=== PATIENT | female | born 1985 | race Caucasian/White ===

== ENCOUNTER → 2016-06-14 | Outpatient (CLI) | payer BC ==
[~2016-06-14] MED LIST: ANAPROX DS550 MG PO; AUGMENTIN 875875 MG PO; Augmentin Xr 101 TER PO; BACTRIM DS 8001 TA1 PO; BIRTH CONTROL1 EAC1 PO; CELEXA20 MG PO; CYMBALTA30 MG PO; DIFLUCAN150 MG PO; HYDROCODONE BIT1 T11 PO; INVANZ1 GM IV; MOBIC15 MG PO; MOBIC7.5 MG PO; MOTRIN600 MG PO; MOTRIN800 MG PO; NAPROSYN500 MG PO; NORCO 325 MG-101 TAB PO; PERCOCET 325 MG1 TA5 PO; PERCOCET 325 MG1 TA6 PO; PRENATAL1 TA7 PO; PRENTAL 1 PLUS1 TAB PO; ULTRAM50 MG PO; Wellbutrin Sr100 MG PO; ZITHROMAX Z PA250 MG PO; ZOFRAN ODT4 MG SL; Zofran4 MG PO
[2016-06-14 17:43] LABS: BASO % 0.5 % (0.0-1.0); EOS # 0.2 10*3/uL (0.0-0.4); EOS % 1.9 % (1.0-4.0); HEMATOCRIT 38.3 % (37.0-47.0); HEMOGLOBIN 12.4 g/dl (12.0-16.0); LYMPH % 48.5 % (27.0-41.0); MEAN CELL VOLUME 86.1 fl (81.0-99.0); MEAN CORPUSCULAR HGB 27.9 pg (27.0-31.0); MEAN CORPUSCULAR HGB CONC 32.4 g/dl (33.0-37.0); MEAN PLATELET VOLUME 11.2 fl (9.6-12.3); MONO # 0.4 10*3/uL (0.1-1.0); NEUT # 3.6 10*3/uL (2.3-7.9); NEUT % 43.6 % (47.0-73.0); PLATELET COUNT AUTOMATED 264 10*3/uL (130-400); RED BLOOD COUNT 4.45 10*6/uL (4.10-5.10); RED CELL DISTRI WIDTH 13.7 % (0-14.5); WHITE BLOOD COUNT 8.3 10*3/uL (4.8-10.8)
[2016-06-14 18:14] LABS: ALBUMIN 3.7 gm/dl (3.1-4.5); ALKALINE PHOSPHATASE 55 U/L (45-117); BILIRUBIN, TOTAL 0.2 mg/dl (0.2-1.0); BUN 8 mg/dl (7-24); C-REACTIVE PROTEIN 1.21 MG/DL (0-0.3); CARBON DIOXIDE 27 mmol/L (21-32); CHLORIDE 107 mmol/L (98-107); EST GLOM FILT AFRICAN AMERICAN > 60 ml/min; GLUCOSE 104 mg/dL (65-99); POTASSIUM 3.8 mmol/L (3.5-5.1); SGOT/AST 11 IU/L (3-35); SGPT/ALT 22 U/L (12-78); SODIUM 142 mmol/L (136-145); TOTAL PROTEIN 7.3 gm/dL (6.4-8.2)
[2016-06-15 22:05] LABS: COMPLEMENT C4 001834 26 mg/dL (14-44)
== END | disposition home or self-care (01) ==
LOC: LAB 17:10
PROVIDERS: Internal Medicine Rheumatology
DX: M32.19 Other organ or system involvement in systemic lupus erythematosus (principal); M06.4 Inflammatory polyarthropathy; Z79.899 Other long term (current) drug therapy

== ENCOUNTER → 2016-08-12 | Outpatient (CLI) | payer BC ==
[2016-08-12 12:42] LABS: BILIRUBIN NEGATIVE (NEGATIVE); BLOOD 2+ (NEGATIVE); CLARITY CLEAR (CLEAR); COLOR YELLOW (YELLOW); GLUCOSE NEGATIVE (NEGATIVE); KETONE NEGATIVE (NEGATIVE); LEUKO ESTERASE NEGATIVE (NEGATIVE); NITRITE NEGATIVE (NEGATIVE); PROTEIN NEGATIVE (NEGATIVE); SPECIFIC GRAVITY <= 1.005 (1.005-1.030); UROBILINOGEN 0.2 E.U./dl (0.2-1.0)
[2016-08-12 12:43] LABS: BASO # 0.1 10*3/uL (0.0-0.1); BASO % 0.5 % (0.0-1.0); EOS # 0.1 10*3/uL (0.0-0.4); EOS % 0.8 % (1.0-4.0); HEMATOCRIT 39.7 % (37.0-47.0); HEMOGLOBIN 12.9 g/dl (12.0-16.0); LYMPH % 30.4 % (27.0-41.0); MEAN CELL VOLUME 86.3 fl (81.0-99.0); MEAN CORPUSCULAR HGB CONC 32.5 g/dl (33.0-37.0); MONO # 0.6 10*3/uL (0.1-1.0); MONO % 6.5 % (3.0-9.0); NEUT % 61.4 % (47.0-73.0); PLATELET COUNT AUTOMATED 202 10*3/uL (130-400); RED CELL DISTRI WIDTH 14.6 % (0-14.5); WHITE BLOOD COUNT 9.7 10*3/uL (4.8-10.8)
[2016-08-12 12:49] LABS: RBC 0-2 rbc/hpf (0-2)
[2016-08-12 13:11] LABS: ALBUMIN 3.9 gm/dl (3.1-4.5); ALKALINE PHOSPHATASE 65 U/L (45-117); BILIRUBIN, TOTAL 0.4 mg/dl (0.2-1.0); BUN 11 mg/dl (7-24); C-REACTIVE PROTEIN 2.68 MG/DL (0-0.3); CARBON DIOXIDE 29 mmol/L (21-32); CHLORIDE 105 mmol/L (98-107); EST GLOM FILT AFRICAN AMERICAN > 60 ml/min; GLUCOSE 98 mg/dL (65-99); POTASSIUM 4.1 mmol/L (3.5-5.1); SGOT/AST 12 IU/L (3-35); SGPT/ALT 14 U/L (12-78); SODIUM 140 mmol/L (136-145); TOTAL PROTEIN 7.4 gm/dL (6.4-8.2)
== END | disposition home or self-care (01) ==
LOC: LAB 11:52
PROVIDERS: Internal Medicine Hematology & Oncology
DX: D68.62 Lupus anticoagulant syndrome (principal); M32.19 Other organ or system involvement in systemic lupus erythematosus

== ENCOUNTER 2016-10-18 17:24 | Emergency (ER) | payer BC ==
[~2016-10-18] VITALS: Ht 160 cm; Wt 59.0 kg
== END 2016-10-18 22:09 | disposition home or self-care (01) ==
LOC: ED 17:24
DX: R51 Headache (principal); R11.0 Nausea; Z88.1 Allergy status to other antibiotic agents; Z88.8 Allergy status to other drugs, medicaments and biological substances

== ENCOUNTER → 2017-01-25 | Outpatient (CLI) | payer BC ==
[2017-01-25 13:51] LABS: BASO % 0.3 % (0.0-1.0); EOS % 0.3 % (1.0-4.0); HEMATOCRIT 39.2 % (37.0-47.0); LYMPH # 4.2 10*3/uL (1.3-4.4); LYMPH % 33.9 % (27.0-41.0); MEAN CELL VOLUME 87.1 fl (81.0-99.0); MEAN CORPUSCULAR HGB 28.9 pg (27.0-31.0); MEAN CORPUSCULAR HGB CONC 33.2 g/dl (33.0-37.0); MEAN PLATELET VOLUME 11.3 fl (9.6-12.3); MONO # 0.6 10*3/uL (0.1-1.0); MONO % 4.5 % (3.0-9.0); NEUT # 7.4 10*3/uL (2.3-7.9); NEUT % 60.3 % (47.0-73.0); PLATELET COUNT AUTOMATED 253 10*3/uL (130-400); RED CELL DISTRI WIDTH 14.2 % (0-14.5); WHITE BLOOD COUNT 12.2 10*3/uL (4.8-10.8)
[2017-01-25 14:05] LABS: BILIRUBIN NEGATIVE (NEGATIVE); BLOOD NEGATIVE (NEGATIVE); CLARITY CLEAR (CLEAR); COLOR YELLOW (YELLOW); GLUCOSE NEGATIVE (NEGATIVE); KETONE NEGATIVE (NEGATIVE); LEUKO ESTERASE NEGATIVE (NEGATIVE); NITRITE NEGATIVE (NEGATIVE); PH 5.5 (5.0-9.0); SPECIFIC GRAVITY >= 1.030 (1.005-1.030); UROBILINOGEN 0.2 E.U./dl (0.2-1.0)
[2017-01-25 14:07] LABS: BACTERIA TRACE; RBC 0-2 rbc/hpf (0-2); WBC 0-2 wbc/hpf (0-5)
[2017-01-25 14:19] LABS: ALBUMIN 3.9 gm/dl (3.1-4.5); ALKALINE PHOSPHATASE 69 U/L (45-117); BUN 14 mg/dl (7-24); CHLORIDE 105 mmol/L (98-107); CREATININE 0.95 mg/dL (0.55-1.02); POTASSIUM 3.3 mmol/L (3.5-5.1); SGOT/AST 11 IU/L (3-35); SGPT/ALT 22 U/L (12-78); SODIUM 139 mmol/L (136-145); TOTAL PROTEIN 7.7 gm/dL (6.4-8.2)
[2017-01-26 08:16] LABS: COMPLEMENT C4 001834 33 mg/dL (14-44)
[2017-01-26 14:11] LABS: ANTI-DSDNA ANTIBODIES 096339 7 IU/mL (0-9)
== END | disposition home or self-care (01) ==
LOC: LAB 13:18
PROVIDERS: Internal Medicine Rheumatology
DX: M32.19 Other organ or system involvement in systemic lupus erythematosus (principal); Z79.899 Other long term (current) drug therapy

== ENCOUNTER → 2017-03-17 | Outpatient (CLI) | payer BC | END | disposition home or self-care (01) | LOC: US 10:40 | DX: N18.1 Chronic kidney disease, stage 1 (principal); R80.9 Proteinuria, unspecified; M32.9 Systemic lupus erythematosus, unspecified; G43.809 Other migraine, not intractable, without status migrainosus ==

== ENCOUNTER → 2017-04-03 | Outpatient (CLI) | payer BC ==
[2017-04-03 09:59] LABS: BASO # 0.1 10*3/uL (0.0-0.1); BASO % 0.5 % (0.0-1.0); EOS % 0.4 % (1.0-4.0); HEMATOCRIT 37.5 % (37.0-47.0); HEMOGLOBIN 12.7 g/dl (12.0-16.0); LYMPH # 3.7 10*3/uL (1.3-4.4); LYMPH % 33.6 % (27.0-41.0); MEAN CELL VOLUME 87.2 fl (81.0-99.0); MEAN CORPUSCULAR HGB 29.5 pg (27.0-31.0); MEAN CORPUSCULAR HGB CONC 33.9 g/dl (33.0-37.0); MEAN PLATELET VOLUME 11.8 fl (9.6-12.3); MONO # 0.6 10*3/uL (0.1-1.0); MONO % 5.2 % (3.0-9.0); NEUT # 6.6 10*3/uL (2.3-7.9); NEUT % 59.8 % (47.0-73.0); PLATELET COUNT AUTOMATED 216 10*3/uL (130-400); RED CELL DISTRI WIDTH 13.6 % (0-14.5); WHITE BLOOD COUNT 10.9 10*3/uL (4.8-10.8)
[2017-04-03 10:23] LABS: ALBUMIN 3.7 gm/dl (3.1-4.5); BUN 11 mg/dl (7-24); CHLORIDE 109 mmol/L (98-107); CHOLESTEROL 173 mg/dL (<200); CREATININE 0.98 mg/dL (0.55-1.02); PHOSPHOROUS 2.3 mg/dL (2.5-4.9); POTASSIUM 3.7 mmol/L (3.5-5.1); SGOT/AST 15 IU/L (3-35); SGPT/ALT 21 U/L (12-78); SODIUM 139 mmol/L (136-145); TOTAL PROTEIN 7.2 gm/dL (6.4-8.2); TRIGLYCERIDES 71 mg/dl (<150); URIC ACID 5.7 mg/dL (2.6-6.0); VLDL CHOLESTEROL 14 mg/dL (6-40)
[2017-04-03 10:29] LABS: ALKALINE PHOSPHATASE 65 U/L (45-117); HDL CHOLESTEROL 76 mg/dl (40-60); LDL CHOLESTEROL 83 mg/dL (9-159)
[2017-04-03 10:56] LABS: PTH INTACT 61.9 pg/mL (14.0-72.0)
[2017-04-03 10:57] LABS: VITAMIN D, 25-HYDROXY 11.7 ng/mL (30-100)
[2017-04-04 07:06] LABS: COMPLEMENT C4 001834 30 mg/dL (14-44)
== END ==
LOC: LAB 09:20
PROVIDERS: Internal Medicine Nephrology
DX: N81.10 Cystocele, unspecified (principal); R80.9 Proteinuria, unspecified; M32.9 Systemic lupus erythematosus, unspecified; G43.809 Other migraine, not intractable, without status migrainosus; N18.1 Chronic kidney disease, stage 1

== ENCOUNTER → 2017-04-05 | Outpatient (CLI) | payer BC ==
[2017-04-05 10:39] LABS: BILIRUBIN NEGATIVE (NEGATIVE); BLOOD 3+ (NEGATIVE); CLARITY CLEAR (CLEAR); COLOR YELLOW (YELLOW); GLUCOSE NEGATIVE (NEGATIVE); KETONE NEGATIVE (NEGATIVE); LEUKO ESTERASE NEGATIVE (NEGATIVE); NITRITE NEGATIVE (NEGATIVE); UROBILINOGEN 0.2 E.U./dl (0.2-1.0)
[2017-04-05 10:49] LABS: MUCOUS TRACE; RBC 41-50 rbc/hpf (0-2); WBC 0-2 wbc/hpf (0-5)
[2017-04-06 10:04] LABS: MICRO ALBUMIN/CRE RATIO 73.5 (0.0-30.0)
== END | disposition home or self-care (01) ==
LOC: LAB 10:19
PROVIDERS: Internal Medicine Nephrology
DX: N18.1 Chronic kidney disease, stage 1 (principal); R80.9 Proteinuria, unspecified; M32.9 Systemic lupus erythematosus, unspecified; G43.809 Other migraine, not intractable, without status migrainosus

== ENCOUNTER → 2017-05-07 | Outpatient (CLI) | payer BC ==
[2017-05-07 08:49] LABS: BILIRUBIN NEGATIVE (NEGATIVE); BLOOD NEGATIVE (NEGATIVE); CLARITY SL CLOUDY (CLEAR); COLOR YELLOW (YELLOW); GLUCOSE NEGATIVE (NEGATIVE); KETONE NEGATIVE (NEGATIVE); LEUKO ESTERASE NEGATIVE (NEGATIVE); NITRITE NEGATIVE (NEGATIVE); PH 5.5 (5.0-9.0); SPECIFIC GRAVITY >= 1.030 (1.005-1.030); UROBILINOGEN 0.2 E.U./dl (0.2-1.0)
[2017-05-07 09:02] LABS: BACTERIA TRACE; MUCOUS 2+; RBC 0-2 rbc/hpf (0-2)
[2017-05-07 09:03] LABS: BUN 11 mg/dl (7-24); CHLORIDE 107 mmol/L (98-107); CREATININE 0.92 mg/dL (0.55-1.02); POTASSIUM 3.4 mmol/L (3.5-5.1); SODIUM 140 mmol/L (136-145)
[2017-05-08 10:03] LABS: CREATININE,URINE 223.7 mg/dL (Not Estab.); MICRO ALBUMIN/CRE RATIO 10.1 (0.0-30.0)
== END | disposition home or self-care (01) ==
LOC: LAB 08:11
PROVIDERS: Internal Medicine Nephrology
DX: G43.809 Other migraine, not intractable, without status migrainosus (principal); M32.9 Systemic lupus erythematosus, unspecified; R80.9 Proteinuria, unspecified; N18.1 Chronic kidney disease, stage 1

== ENCOUNTER → 2017-05-09 | Outpatient (CLI) | payer BC ==
[2017-05-09 10:58] LABS: BASO # 0.1 10*3/uL (0.0-0.1); BASO % 0.5 % (0.0-1.0); EOS % 0.3 % (1.0-4.0); HEMATOCRIT 39.9 % (37.0-47.0); HEMOGLOBIN 12.7 g/dl (12.0-16.0); LYMPH # 3.9 10*3/uL (1.3-4.4); LYMPH % 38.6 % (27.0-41.0); MEAN CELL VOLUME 90.3 fl (81.0-99.0); MEAN CORPUSCULAR HGB 28.7 pg (27.0-31.0); MEAN CORPUSCULAR HGB CONC 31.8 g/dl (33.0-37.0); MEAN PLATELET VOLUME 11.2 fl (9.6-12.3); MONO # 0.7 10*3/uL (0.1-1.0); MONO % 6.4 % (3.0-9.0); NEUT # 5.4 10*3/uL (2.3-7.9); NEUT % 53.8 % (47.0-73.0); PLATELET COUNT AUTOMATED 263 10*3/uL (130-400); RED BLOOD COUNT 4.42 10*6/uL (4.10-5.10); RED CELL DISTRI WIDTH 14.1 % (0-14.5); WHITE BLOOD COUNT 10.1 10*3/uL (4.8-10.8)
[2017-05-09 11:26] LABS: ALBUMIN 3.7 gm/dl (3.1-4.5); ALKALINE PHOSPHATASE 67 U/L (45-117); BUN 10 mg/dl (7-24); CHLORIDE 107 mmol/L (98-107); CREATININE 0.99 mg/dL (0.55-1.02); POTASSIUM 3.5 mmol/L (3.5-5.1); SGOT/AST 11 IU/L (3-35); SGPT/ALT 19 U/L (12-78); SODIUM 141 mmol/L (136-145); TOTAL PROTEIN 7.5 gm/dL (6.4-8.2)
== END | disposition home or self-care (01) ==
LOC: LAB 10:28
PROVIDERS: Internal Medicine Rheumatology
DX: G43.809 Other migraine, not intractable, without status migrainosus (principal); R80.9 Proteinuria, unspecified; N18.1 Chronic kidney disease, stage 1; M06.4 Inflammatory polyarthropathy; M32.19 Other organ or system involvement in systemic lupus erythematosus; Z79.899 Other long term (current) drug therapy

== ENCOUNTER → 2017-07-20 | Outpatient (CLI) | payer BC ==
[2017-07-20 13:21] LABS: BASO # 0.1 10*3/uL (0.0-0.1); BASO % 0.5 % (0.0-1.0); EOS # 0.1 10*3/uL (0.0-0.4); EOS % 1.1 % (1.0-4.0); HEMOGLOBIN 12.6 g/dl (12.0-16.0); LYMPH # 3.3 10*3/uL (1.3-4.4); LYMPH % 30.8 % (27.0-41.0); MEAN CELL VOLUME 90.7 fl (81.0-99.0); MEAN CORPUSCULAR HGB 29.3 pg (27.0-31.0); MEAN CORPUSCULAR HGB CONC 32.3 g/dl (33.0-37.0); MONO # 0.7 10*3/uL (0.1-1.0); MONO % 6.5 % (3.0-9.0); NEUT # 6.4 10*3/uL (2.3-7.9); NEUT % 60.7 % (47.0-73.0); PLATELET COUNT AUTOMATED 249 10*3/uL (130-400); RED CELL DISTRI WIDTH 14.4 % (0-14.5); WHITE BLOOD COUNT 10.6 10*3/uL (4.8-10.8)
[2017-07-20 13:51] LABS: CREATININE 0.86 mg/dL (0.55-1.02); SGOT/AST 13 IU/L (3-35); SGPT/ALT 19 U/L (12-78)
== END | disposition home or self-care (01) ==
LOC: LAB 12:36
PROVIDERS: Internal Medicine
DX: M32.19 Other organ or system involvement in systemic lupus erythematosus (principal)

== ENCOUNTER → 2017-10-18 | Outpatient (CLI) | payer BC ==
[2017-10-18 16:15] LABS: BASO # 0.1 10*3/uL (0.0-0.1); BASO % 0.5 % (0.0-1.0); EOS % 0.4 % (1.0-4.0); HEMATOCRIT 39.3 % (37.0-47.0); HEMOGLOBIN 12.6 g/dl (12.0-16.0); LYMPH # 4.1 10*3/uL (1.3-4.4); LYMPH % 40.5 % (27.0-41.0); MEAN CELL VOLUME 89.7 fl (81.0-99.0); MEAN CORPUSCULAR HGB 28.8 pg (27.0-31.0); MEAN CORPUSCULAR HGB CONC 32.1 g/dl (33.0-37.0); MONO # 0.6 10*3/uL (0.1-1.0); MONO % 5.4 % (3.0-9.0); NEUT # 5.4 10*3/uL (2.3-7.9); NEUT % 52.9 % (47.0-73.0); PLATELET COUNT AUTOMATED 256 10*3/uL (130-400); RED BLOOD COUNT 4.38 10*6/uL (4.10-5.10); RED CELL DISTRI WIDTH 14.6 % (0-14.5); WHITE BLOOD COUNT 10.2 10*3/uL (4.8-10.8)
[2017-10-18 16:42] LABS: SGOT/AST 8 IU/L (3-35); SGPT/ALT 16 U/L (12-78)
== END | disposition home or self-care (01) ==
LOC: LAB 14:48 → RESCLI 14:48
PROVIDERS: Internal Medicine
DX: M32.19 Other organ or system involvement in systemic lupus erythematosus (principal)

== ENCOUNTER 2018-05-28 15:53 | Emergency (ER) | payer BC ==
[~2018-05-28] VITALS: Ht 160 cm; Wt 59.0 kg
--- NOTE | ~2018-05-28 | EKG ---
[place], [place] ELECTROCARDIOGRAM REPORT NAME: ERIN FELICIANO UNIT #: [id number] ROOM: DOCTOR: EPIPHANY DRAFT REPORT BIRTHDATE: [birth year] [facility] Test Date: 2018-05-28 Test Time: 16:02:28 Pat Name: ERIN FELICIANO Department: ER Room: Gender: F Surveillance Manager: : 1985 Requested By: JASWINDER PEPE Order Number: [id number] Reading MD: Negro Alfaro MD Measurements Intervals [place] Rate: 92 P: 51 PA: 153 QRS: 75 QRSD: 113 T: 43 QT: 390 QTc: 483 Interpretive Statements Sinus rhythm Incomplete right bundle branch block Borderline prolonged QT interval Electronically Signed On 05-30-2018 11:28:42 PDT by Negro Alfaro MD CM:EKGRPT:ELECTROCARDIOGRAM REPORT [id number] JASWINDER BROWN DRAFT REPORT JASWINDER PEPE M.D.
[~2018-05-28 15:53] MED LIST changes: +ASPIRIN81 M1 PO; +B COMPLEX1 EACH PO; +FLUVOXAMINE PO; +HYDROXYCHLOROQ200 M1 PO; +METHOTREXATE2.5 M1 PO; +NATURE'S BLEND F1 MG PO; +PREDNISONE5 MG PO; +RANITIDINE HCL150 M1 PO; +TOPAMAX25 M3 PO; +VITAMIN D-32000 UNIT PO
[2018-05-28 16:35] LABS: BASO % 0.3 % (0.0-1.0); EOS # 0.1 10*3/uL (0.0-0.4); EOS % 1.2 % (1.0-4.0); HEMOGLOBIN 12.1 g/dl (12.0-16.0); LYMPH # 3.2 10*3/uL (1.3-4.4); MEAN CELL VOLUME 86.4 fl (81.0-99.0); MEAN CORPUSCULAR HGB 28.3 pg (27.0-31.0); MEAN CORPUSCULAR HGB CONC 32.7 g/dl (33.0-37.0); MEAN PLATELET VOLUME 11.2 fl (9.6-12.3); MONO # 0.5 10*3/uL (0.1-1.0); MONO % 5.2 % (3.0-9.0); PLATELET COUNT AUTOMATED 268 10*3/uL (130-400); RED BLOOD COUNT 4.28 10*6/uL (4.10-5.10); RED CELL DISTRI WIDTH 13.6 % (0-14.5); WHITE BLOOD COUNT 8.8 10*3/uL (4.8-10.8)
[2018-05-28 16:45] LABS: ACT PARTIAL THROMBO TIME 26.8 SECONDS (20.8-31.5)
[2018-05-28 17:05] LABS: BUN 12 mg/dl (7-24); CHLORIDE 110 mmol/L (98-107); POTASSIUM 3.4 mmol/L (3.5-5.1); SGOT/AST 11 IU/L (3-35); SODIUM 140 mmol/L (136-145)
[2018-05-28 17:07] LABS: ALBUMIN 3.8 gm/dl (3.1-4.5); ALKALINE PHOSPHATASE 70 U/L (45-117); CREATININE 0.93 mg/dL (0.55-1.02); LIPASE 115 U/L (73-393); SGPT/ALT 15 U/L (12-78); TOTAL PROTEIN 7.6 gm/dL (6.4-8.2)
[2018-05-28 17:10] LABS: TROPONIN I < 0.015 ng/ml (<0.045)
== END 2018-05-28 19:18 | disposition home or self-care (01) ==
LOC: ED 15:53
PROVIDERS: Nurse Practitioner Family
DX: R05 Cough (principal); R07.9 Chest pain, unspecified; R06.02 Shortness of breath; Z88.1 Allergy status to other antibiotic agents; Z88.8 Allergy status to other drugs, medicaments and biological substances; Z79.899 Other long term (current) drug therapy; Z79.82 Long term (current) use of aspirin

== ENCOUNTER 2024-02-18 02:17 | Emergency (ER) | payer BC ==
[~2024-02-18] VITALS: Ht 157.4 cm; Wt 54.4 kg
[2024-02-18] MEDS ORDERED: LORazepam 1 MG TAB PO ONE (02:50)
== END 2024-02-18 04:43 | disposition home or self-care (01) ==
LOC: ED 02:17
DX: F41.9 Anxiety disorder, unspecified (principal); M54.6 Pain in thoracic spine; Z88.1 Allergy status to other antibiotic agents; Z88.8 Allergy status to other drugs, medicaments and biological substances; Z98.890 Other specified postprocedural states

== ENCOUNTER 2025-01-12 10:22 | Emergency (ER) | payer BC ==
[~2025-01-12] VITALS: Ht 154.9 cm; Wt 61.2 kg
[2025-01-12] MEDS ORDERED: diphenhydrAMINE hydrochloride 50 MG/ML VIAL IV ONE (11:45)
[2025-01-12] MEDS ORDERED: SODIUM CHLORIDE 0.9% 1,000 ML IV ONE (11:45)
[2025-01-12] MEDS ORDERED: Metoclopramide Hydrochloride 10 MG/2 ML VIAL IV ONE (11:45)
[2025-01-12] MEDS ORDERED: Dexamethasone Sodium Phospha 10 MG/1 ML VIAL IV ONE (13:00)
== END 2025-01-12 13:14 | disposition home or self-care (01) ==
LOC: ED 10:22
DX: G43.909 Migraine, unspecified, not intractable, without status migrainosus (principal); Z88.1 Allergy status to other antibiotic agents; Z88.8 Allergy status to other drugs, medicaments and biological substances

== ENCOUNTER 2025-01-20 13:37 | Emergency (ER) | payer BC ==
[~2025-01-20] VITALS: Ht 154.9 cm; Wt 59.0 kg
[2025-01-20] MEDS ORDERED: NURTEC ODT75 MG PO (14:10)
[2025-01-20] MEDS ORDERED: BENLYSTA200 MG/11 SQ (14:11)
== END 2025-01-20 15:40 | disposition home or self-care (01) ==
LOC: ED 13:37
DX: M79.622 Pain in left upper arm (principal); G43.909 Migraine, unspecified, not intractable, without status migrainosus; Z88.1 Allergy status to other antibiotic agents; Z88.8 Allergy status to other drugs, medicaments and biological substances